=== PATIENT | female | born 1960 | race Caucasian/White ===

== ENCOUNTER 2021-04-22 12:14 | Emergency (ER) | payer SELFPAY ==
[2021-04-22] MEDS ORDERED: OMEPRAZOLE MAGN20 M1 PO (12:41)
[2021-04-22] MEDS ORDERED: ATORVASTATIN CA20 MG PO (12:41)
[2021-04-22] MEDS ORDERED: PROPRANOLOL HCL80 M4 PO (12:43)
[2021-04-22] MEDS ORDERED: WELLBUTRIN XL150 M2 PO (12:43)
[2021-04-22] MEDS ORDERED: EUTHYROX75 MCG PO (12:44)
[2021-04-22] MEDS ORDERED: CYCLOBENZAPRINE10 M1 PO (12:44)
[2021-04-22] MEDS ORDERED: TRAVATAN Z 2.52.5 ML OU (12:45)
[2021-04-22] MEDS ORDERED: VITAMIN D350 MCG PO (12:45)
[2021-04-22 13:01] LABS: BASO # 0.07 (0.02-0.10); EOS # 0.07 (0.04-0.40); EOS % 0.4 % (1.0-5.0); HEMATOCRIT 45.7 % (37.0-47.0); HEMOGLOBIN 15.1 g/dL (12.5-16.0); MEAN CELL VOLUME 86 fl (78-100); MEAN CORPUSCULAR HEMOGLOBIN 29 pg (27-31); MEAN CORPUSCULAR HGB CONC 33 g/dL (33-37); MEAN PLATELET VOLUME 13.7 fl (7.4-10.4); MONO # 1.18 (0.20-0.80); NEU # 13.53 (1.40-6.50); PLATELET COUNT 318 K/mm3 (130-400); POTASSIUM 3.9 mmol/L (3.5-5.1); RED CELL DISTRIBUTION WIDTH 12.3 % (11.5-14.5); WHITE BLOOD COUNT 17.4 K/mm3 (4.8-10.8)
[2021-04-22 13:02] LABS: CALCIUM 10.2 mg/dL (8.3-10.5)
[2021-04-22 14:06] LABS: URINE APPEARANCE CLEAR; URINE BILIRUBIN NEGATIVE (NEGATIVE); URINE BLOOD 50 ery/uL (NEGATIVE); URINE COLOR YELLOW; URINE GLUCOSE NEGATIVE (NEGATIVE); URINE KETONE NEGATIVE (NEGATIVE); URINE LEUKOCYTE ESTERASE NEGATIVE (NEGATIVE); URINE NITRATE NEGATIVE (NEGATIVE); URINE PROTEIN(semi-quant) NEGATIVE (NEGATIVE); URINE UROBILINOGEN NORMAL (NORMAL); URINE WBC 0-1 /hpf (0-3)
[2021-04-22] MEDS ORDERED: AUGMENTIN 875-1 EAC1 PO (16:40)
[2021-04-22] MEDS ORDERED: NORCO 325 MG-51 TA1 PO (16:40)
[2021-04-22 17:45] VITALS: BP 142/89
== END 2021-04-22 17:49 | disposition home or self-care (01) ==
LOC: ED 12:14
PROVIDERS: Family Medicine
DX: U07.1 COVID-19 (principal); K57.92 Diverticulitis of intestine, part unspecified, without perforation or abscess without bleeding; K21.9 Gastro-esophageal reflux disease without esophagitis; E78.5 Hyperlipidemia, unspecified; F41.9 Anxiety disorder, unspecified; F32.9 Major depressive disorder, single episode, unspecified; G43.909 Migraine, unspecified, not intractable, without status migrainosus; Z90.89 Acquired absence of other organs; Z79.899 Other long term (current) drug therapy
CPT/HCPCS: J0295; J1885; Q9967

== ENCOUNTER 2022-04-03 01:17 | Emergency (ER) | payer SELFPAY ==
[~2022-04-03] VITALS: Ht 157.5 cm; Wt 51.9 kg
[~2022-04-03 01:17] MED LIST: ATORVASTATIN CA20 MG PO; AUGMENTIN 875-1 EAC1 PO; CYCLOBENZAPRINE10 M1 PO; EUTHYROX75 MCG PO; NORCO 325 MG-51 TA1 PO; OMEPRAZOLE MAGN20 M1 PO; PROPRANOLOL HCL80 M4 PO; TRAVATAN Z 2.52.5 ML OU; VITAMIN D350 MCG PO; WELLBUTRIN XL150 M2 PO
[2022-04-03] MEDS ORDERED: INDERAL 10MG10 MG (01:31)
[2022-04-03] MEDS ORDERED: MELOXICAM15 MG PO (01:33)
[2022-04-03] MEDS ORDERED: HYDROCHLORIDE PO (01:33)
[2022-04-03] MEDS ORDERED: WELLBUTRIN 75MG75 MG (01:34)
[2022-04-03] MEDS ORDERED: [UNRECOGNIZED DRUG - OTHER] (01:35)
[2022-04-03] MEDS ORDERED: BUSPIRONE5 MG (01:35)
[2022-04-03] MEDS ORDERED: DESYREL50 MG PO (01:36)
[2022-04-03] MEDS ORDERED: [UNRECOGNIZED DRUG - REMARK] (01:36)
[2022-04-03] MEDS ORDERED: VALIUM 5MG T5 MG/TAB PO (01:37)
[2022-04-03] MEDS ORDERED: ULTRAM50 M1 PO (01:37)
[2022-04-03] MEDS ORDERED: ACIDOPHILUS1 EAC3 PO (01:37)
[2022-04-03 02:44] LABS: BASO # 0.04 K/mm3 (0.02-0.10); EOS # 0.13 K/mm3 (0.04-0.40); EOS % 1.3 % (1.0-5.0); HEMATOCRIT 41.1 % (37.0-47.0); HEMOGLOBIN 13.8 g/dL (12.5-16.0); LYMPH# 2.15 K/mm3 (1.50-4.00); MEAN CELL VOLUME 88 fl (78-100); MEAN CORPUSCULAR HEMOGLOBIN 30 pg (27-31); MEAN CORPUSCULAR HGB CONC 34 g/dL (33-37); MEAN PLATELET VOLUME 12.8 fl (7.4-10.4); MONO # 0.55 K/mm3 (0.20-0.80); NEU # 6.83 K/mm3 (1.40-6.50); PLATELET COUNT 216 K/mm3 (130-400); RED BLOOD COUNT 4.66 M/mm3 (4.10-5.30); RED CELL DISTRIBUTION WIDTH 12.3 % (11.5-14.5); WHITE BLOOD COUNT 9.7 K/mm3 (4.8-10.8)
[2022-04-03 02:50] LABS: ALBUMIN 4.5 g/dL (3.4-4.8)
[2022-04-03 02:52] LABS: CALCIUM 9.9 mg/dL (8.3-10.5)
[2022-04-03 02:53] LABS: TOTAL PROTEIN 7.8 g/dL (6.2-8.1)
[2022-04-03 02:55] LABS: TOTAL BILIRUBIN 0.4 mg/dL (0.2-1.2)
[2022-04-03 03:02] LABS: URINE APPEARANCE CLOUDY; URINE BILIRUBIN NEGATIVE (NEGATIVE); URINE BLOOD TRACE (NEGATIVE); URINE COLOR DK YELLOW; URINE GLUCOSE NEGATIVE (NEGATIVE); URINE KETONE 1+ (NEGATIVE); URINE LEUKOCYTE ESTERASE 1+ (NEGATIVE); URINE NITRATE NEGATIVE (NEGATIVE); URINE PROTEIN(semi-quant) TRACE (NEGATIVE); URINE UROBILINOGEN NORMAL (NORMAL)
[2022-04-03 03:03] LABS: URINE MUCUS PRESENT (NOT PRESENT)
[2022-04-03] MEDS ORDERED: MACROBID 100 M100 MG PO (05:18)
[2022-04-03 05:45] VITALS: BP 128/55
== END 2022-04-03 05:48 | disposition home or self-care (01) ==
LOC: ED 01:17
PROVIDERS: Nurse Practitioner
DX: N39.0 Urinary tract infection, site not specified (principal); K52.9 Noninfective gastroenteritis and colitis, unspecified; K20.90 Esophagitis, unspecified without bleeding; Z87.891 Personal history of nicotine dependence
CPT/HCPCS: J2405; J3010; J7030; Q9967

== ENCOUNTER 2022-04-20 07:52 | Emergency (ER) | payer SELFPAY ==
[~2022-04-20] VITALS: Ht 157.5 cm; Wt 49.1 kg
[~2022-04-20 07:52] MED LIST changes: +ACIDOPHILUS1 EAC3 PO; +BUSPIRONE5 MG; +DESYREL50 MG PO; +HYDROCHLORIDE PO; +INDERAL 10MG10 MG; +MACROBID 100 M100 MG PO; +MELOXICAM15 MG PO; +ULTRAM50 M1 PO; +VALIUM 5MG T5 MG/TAB PO; +WELLBUTRIN 75MG75 MG; +[UNRECOGNIZED DRUG - OTHER]; +[UNRECOGNIZED DRUG - REMARK]
[2022-04-20 09:38] LABS: ALBUMIN 4.9 g/dL (3.4-4.8); POTASSIUM 3.9 mmol/L (3.5-5.1); SODIUM 141 mmol/L (136-145)
[2022-04-20 09:40] LABS: CALCIUM 10.5 mg/dL (8.3-10.5)
[2022-04-20 09:41] LABS: GLUCOSE 104 mg/dL (65-105); TOTAL PROTEIN 8.4 g/dL (6.2-8.1)
[2022-04-20 09:42] LABS: CARBON DIOXIDE 21 mmol/L (23-31)
[2022-04-20 09:43] LABS: TOTAL BILIRUBIN 1.1 mg/dL (0.2-1.2)
[2022-04-20 09:46] LABS: AST-SGOT 20 U/L (5-34); BASO # 0.06 K/mm3 (0.02-0.10); EOS # 0.08 K/mm3 (0.04-0.40); EOS % 0.7 % (1.0-5.0); HEMATOCRIT 43.5 % (37.0-47.0); HEMOGLOBIN 14.5 g/dL (12.5-16.0); LYMPH# 2.17 K/mm3 (1.50-4.00); MEAN CELL VOLUME 88 fl (78-100); MEAN CORPUSCULAR HEMOGLOBIN 29 pg (27-31); MEAN CORPUSCULAR HGB CONC 33 g/dL (33-37); MEAN PLATELET VOLUME 13.7 fl (7.4-10.4); MONO # 0.49 K/mm3 (0.20-0.80); NEU # 8.23 K/mm3 (1.40-6.50); PLATELET COUNT 194 K/mm3 (130-400); RED BLOOD COUNT 4.95 M/mm3 (4.10-5.30); RED CELL DISTRIBUTION WIDTH 12.3 % (11.5-14.5)
[2022-04-20 09:47] LABS: ALT/SGPT 18 U/L (0-55)
[2022-04-20 12:05] LABS: URINE APPEARANCE HAZY; URINE BILIRUBIN NEGATIVE (NEGATIVE); URINE BLOOD TRACE (NEGATIVE); URINE COLOR YELLOW; URINE GLUCOSE NEGATIVE (NEGATIVE); URINE KETONE 2+ (NEGATIVE); URINE LEUKOCYTE ESTERASE TRACE (NEGATIVE); URINE MUCUS PRESENT (NOT PRESENT); URINE NITRATE NEGATIVE (NEGATIVE); URINE PROTEIN(semi-quant) NEGATIVE (NEGATIVE); URINE UROBILINOGEN NORMAL (NORMAL)
[2022-04-20 13:14] VITALS: BP 138/79
== END 2022-04-20 13:15 | disposition home or self-care (01) ==
LOC: ED 07:52
PROVIDERS: Nurse Practitioner
DX: E07.9 Disorder of thyroid, unspecified (principal); Z87.891 Personal history of nicotine dependence; Z28.310 Unvaccinated for COVID-19